=== PATIENT | male | born 1950 | race Caucasian/White ===

== ENCOUNTER 2017-10-26 07:24 | Day surgery (SDC) | payer MEDICARE, OTHER ==
[2017-10-26 08:23] LABS: ADD MAN DIFF? NO
[2017-10-26 08:34] LABS: WHITE BLOOD COUNT 7.9 10^3/ul (4.8-10.8)
[2017-10-26 08:34] LABS: BASOPHIL # 0.1 10^3/ul (0.0-0.1); BASOPHILS % 0.8 % (0.0-2.0); EOSINOPHILS # 0.2 10^3/ul (0.0-0.5); EOSINOPHILS % 2.5 % (0.0-7.0); HEMATOCRIT 43.8 % (42.0-52.0); HEMOGLOBIN 15.5 g/dl (14.0-18.0); LYMPHOCYTES # 1.8 10^3/ul (0.8-2.9); LYMPHOCYTES % 22.3 % (15.0-51.0); MEAN CORPUSCULAR HEMOGLOBIN 32.1 pg (29.0-33.0); MEAN CORPUSCULAR HGB CONC 35.4 g/dl (32.0-37.0); MEAN CORPUSCULAR VOLUME 90.7 fl (82.0-101.0); MEAN PLATELET VOLUME 10.5 fl (7.4-10.4); MONOCYTE # 0.8 10^3/ul (0.3-0.9); MONOCYTES % 9.9 % (0.0-11.0); NEUTROPHIL # 5.1 10^3/ul (1.6-7.5); NEUTROPHILS % 64.2 % (39.0-77.0); PLATELET COUNT 297 10^3/UL (140-415); RED BLOOD COUNT 4.83 10^6/ul (4.70-6.10); RED CELL DISTRIBUTION WIDTH 13.7 % (11.5-14.5)
[2017-10-26 10:04] LABS: INR 0.97
[2017-10-26 10:07] LABS: ALANINE AMINOTRANSFERASE 47 IU/L (13-69); ALBUMIN 4.1 g/dl (3.3-4.9); ALBUMIN/GLOBULIN RATIO 1.32; ALKALINE PHOSPHATASE 63 IU/L (42-121); ANION GAP 19 (8-16); ASPARTATE AMINO TRANSFERASE 35 IU/L (15-46); BILIRUBIN,INDIRECT 0.6 mg/dl (0-1.1); BILIRUBIN,TOTAL 0.6 mg/dl (0.2-1.3); BLOOD UREA NITROGEN 28 mg/dl (7-20); CALCIUM 9.5 mg/dl (8.4-10.2); CARBON DIOXIDE 22 mmol/L (21-31); CHLORIDE 112 mmol/L (97-110); CREATININE 1.11 mg/dl (0.61-1.24); GLUCOSE 100 mg/dl (70-220); POTASSIUM 4.4 mmol/L (3.5-5.1); SODIUM 149 mmol/L (135-144); TOTAL PROTEIN 7.2 g/dl (6.1-8.1)
[2017-10-26] MEDS ORDERED: SOD CHLORIDE 0.9% 1,000 ML IV (11:00)
[2017-10-26] MEDS ORDERED: CEFAZOLIN 2 GM/50 ML (PMX) 50 ML IVPB (11:00)
[2017-10-26] MEDS ORDERED: LIDOCAINE 2% (SDV) 5 ML INJ (11:23)
[2017-10-26] MEDS ORDERED: NEOSTIGMINE 3 MG/3 ML SYRINGE ×2 (11:23→12:06)
[2017-10-26] MEDS ORDERED: MEPERIDINE 100 MG INJ (11:23)
[2017-10-26] MEDS ORDERED: SUCCINYLCHOLINE CHLORIDE 100 MG/5 ML SYG IV (11:23)
[2017-10-26] MEDS ORDERED: ROCURONIUM 50 MG INJ (11:23)
[2017-10-26] MEDS ORDERED: PROPOFOL 20 ML (11:23)
[2017-10-26] MEDS ORDERED: GLYCOPYRROLATE 0.4 MG INJ ×2 (11:23→12:06)
[2017-10-26] MEDS ORDERED: ONDANSETRON 4 MG INJ IV (11:30)
[2017-10-26] MEDS ORDERED: METOCLOPRAMIDE 10 MG INJ IV (11:30)
[2017-10-26] MEDS ORDERED: MEPERIDINE 25 MG INJ IV (11:30)
[2017-10-26] MEDS ORDERED: OXYCODONE/ACETAMINOPHEN (5/325) TAB PO (11:30)
[2017-10-26] MEDS ORDERED: MIDAZOLAM 1 MG/ML 2 ML INJ IV (11:30)
[2017-10-26] MEDS ORDERED: FENTAnyl 50 MCG/ML VIAL IV ×3 (11:30)
[2017-10-26] MEDS ORDERED: LABETALOL HCL 20MG INJ IV (11:30)
[2017-10-26] MEDS ORDERED: hydrALAzine 20 MG INJ IV (11:30)
[2017-10-26] MEDS ORDERED: HYDROmorphONE (0.2 MG/ML) 10ML SYG IV ×2 (11:30)
[2017-10-26] MEDS ORDERED: DIPHENHYDRAMINE 50 MG INJ IV (11:30)
[2017-10-26] MEDS ORDERED: EPHEDrine SULFATE 50 MG/5 ML SYG IV (11:30)
[2017-10-26] MEDS ORDERED: CEFAZOLIN 1 GM INJ (11:55)
[2017-10-26] MEDS ORDERED: EPHEDrine SULFATE 50 MG/5 ML SYG (12:08)
[2017-10-26] MEDS ORDERED: ONDANSETRON 4 MG INJ (12:08)
[2017-10-26] MEDS: BUPIVACAINE 0.5%/EPI (SDV) 30 ML INJ (12:51)
[2017-10-26] MEDS: POLYMYXIN/BACITRACIN 1L IRRIG (12:51)
[2017-10-26] MEDS: HYDROmorphONE (0.2 MG/ML) 10ML SYG IV (12:56)
[2017-10-26] MEDS: OXYCODONE/ACETAMINOPHEN (5/325) TAB PO (14:18)
== END 2017-10-26 14:50 | disposition home or self-care (01) ==
LOC: SDS 07:24
DX: K40.90 Unilateral inguinal hernia, without obstruction or gangrene, not specified as recurrent (principal); I10 Essential (primary) hypertension; E78.5 Hyperlipidemia, unspecified
CPT/HCPCS: 49507; 71010; 80053; 85025; 85610; 85730; 93005

== ENCOUNTER 2018-02-15 09:47 | Day surgery (SDC) | payer MEDICARE, MEDICAID, OTHER ==
[2018-02-15] MEDS: BUPIVACAINE 0.5%/EPI (SDV) 30 ML INJ INJ
[~2018-02-15 09:47] MED LIST: CEFAZOLIN 2 GM/50 ML (PMX) 50 ML IVPB; SOD CHLORIDE 0.9% 1,000 ML IV
[2018-02-15] MEDS ORDERED: POLYMYXIN/BACITRACIN 1L IRRIG (11:44)
[2018-02-15] MEDS ORDERED: DIPHENHYDRAMINE 50 MG INJ IV (12:00)
[2018-02-15] MEDS ORDERED: MEPERIDINE 25 MG INJ IV (12:00)
[2018-02-15] MEDS ORDERED: EPHEDrine SULFATE 50 MG/5 ML SYG IV (12:00)
[2018-02-15] MEDS ORDERED: LABETALOL HCL 20MG INJ IV (12:00)
[2018-02-15] MEDS ORDERED: HYDROmorphONE (0.2 MG/ML) 10ML SYG IV ×2 (12:00)
[2018-02-15] MEDS ORDERED: hydrALAzine 20 MG INJ IV (12:00)
[2018-02-15] MEDS ORDERED: CEFAZOLIN 1 GM INJ (12:00)
[2018-02-15] MEDS ORDERED: FENTAnyl 50 MCG/ML VIAL IV ×2 (12:00)
[2018-02-15] MEDS ORDERED: OXYCODONE/ACETAMINOPHEN (5/325) TAB PO (12:00)
[2018-02-15] MEDS ORDERED: LIDOCAINE 100 MG SYRINGE (12:00)
[2018-02-15] MEDS ORDERED: PROPOFOL 20 ML (12:00)
[2018-02-15] MEDS ORDERED: MIDAZOLAM 1 MG/ML 2 ML INJ IV (12:00)
[2018-02-15] MEDS ORDERED: MEPERIDINE 100 MG INJ (12:01)
[2018-02-15] MEDS ORDERED: ONDANSETRON 4 MG INJ (12:01)
[2018-02-15] MEDS ORDERED: GLYCOPYRROLATE 0.4 MG INJ (12:44)
[2018-02-15] MEDS ORDERED: NEOSTIGMINE 3 MG/3 ML SYRINGE (12:44)
[2018-02-15] MEDS ORDERED: NALOXONE (0.4 MG/ML) INJ (12:54)
[2018-02-15] MEDS: FENTAnyl 50 MCG/ML VIAL IV ×2 (13:08→13:17)
[2018-02-15] MEDS: ONDANSETRON 4 MG INJ IV (13:30)
[2018-02-15] MEDS: HYDROmorphONE (0.2 MG/ML) 10ML SYG IV ×2 (13:30→13:41)
[2018-02-15] MEDS: OXYCODONE/ACETAMINOPHEN (5/325) TAB PO (14:39)
[2018-02-15] MEDS: METOCLOPRAMIDE 10 MG INJ IV (14:41)
== END 2018-02-15 15:06 | disposition home or self-care (01) ==
LOC: SDS 09:47
DX: K42.0 Umbilical hernia with obstruction, without gangrene (principal); I10 Essential (primary) hypertension; E78.5 Hyperlipidemia, unspecified
CPT/HCPCS: 49587; 71045; 88302; 93005